=== PATIENT | male | born 1985 | race American Indian/Alaskan Native ===

== ENCOUNTER 2018-04-03 17:10 | Emergency (ER) | payer OTHER ==
[2018-04-03 17:50] VITALS: BP 121/54
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
[2018-04-03] MEDS ORDERED: NORCO 5/325 PO ONE (20:22)
[2018-04-03] MEDS ORDERED: FLEXERIL PO ONE (20:22)
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
== END 2018-04-03 21:43 | disposition home or self-care (01) ==
LOC: EDBD → ED 17:10
DX: S09.90XA Unspecified injury of head, initial encounter (principal); S39.012A Strain of muscle, fascia and tendon of lower back, initial encounter; S16.1XXA Strain of muscle, fascia and tendon at neck level, initial encounter; G44.319 Acute post-traumatic headache, not intractable; F12.10 Cannabis abuse, uncomplicated; V43.62XA Car passenger injured in collision with other type car in traffic accident, initial encounter; Y93.89 Activity, other specified; Y99.8 Other external cause status; Y92.410 Unspecified street and highway as the place of occurrence of the external cause
CPT/HCPCS: 70450; 72072; 72100; 72125

== ENCOUNTER 2019-06-04 13:09 | Emergency (ER) | payer OTHER ==
[2019-06-04 14:31] VITALS: BP 117/62
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
--- NOTE | 2019-06-04 15:17 | XRay Report ---
CERVICAL SPINE, 3 VIEWS INDICATION: neck pain. COMPARISON: None. IMPRESSION: Normal alignment. No significant discogenic DJD or facet arthropathy. No acute osseous or soft tissue abnormality. Signer Name: Iam Mandel Jr, MD Signed: 06/04/2019 3:13 PM Workstation Name: [id number]
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
== END 2019-06-04 16:57 | disposition home or self-care (01) ==
LOC: ED 13:09
DX: S10.93XA Contusion of unspecified part of neck, initial encounter (principal); M54.2 Cervicalgia; F17.200 Nicotine dependence, unspecified, uncomplicated; W20.8XXA Other cause of strike by thrown, projected or falling object, initial encounter; Y93.89 Activity, other specified; Y92.89 Other specified places as the place of occurrence of the external cause; Y99.8 Other external cause status
CPT/HCPCS: 72040; 99283